=== PATIENT | male | born 1935 | race Caucasian/White ===

== ENCOUNTER 2018-05-04 11:53 | Emergency (ER) | payer OTHER ==
[2018-05-04] MEDS: HYDROcodone/APAP 5/325MG 1 TAB TABLET PO (12:51)
== END 2018-05-04 14:25 | disposition home or self-care (01) ==
LOC: ER 11:53
DX: M25.512 Pain in left shoulder (principal); G89.29 Other chronic pain; I10 Essential (primary) hypertension; E03.9 Hypothyroidism, unspecified; Z88.8 Allergy status to other drugs, medicaments and biological substances
CPT/HCPCS: 73030; 84484; 93005; 99284

== ENCOUNTER 2019-10-23 18:04 | Emergency (ER) | payer MEDICARE, OTHER ==
[~2019-10-23] VITALS: Ht 172.7 cm; Wt 60.8 kg
[~2019-10-23 18:04] MED LIST: HYDR-2761 PO
[2019-10-23 19:10] VITALS: BP 144/85
--- NOTE | 2019-10-23 19:26 | PHYS DOC ---
Past Medical History Past Medical History: Hypertension, Hypothyroid, Other Additional Past Medical Histor: POST HERPETIC NEUROPATHY-LEFT CHEST/RIBS Past Surgical History: Appendectomy, Cholecystectomy, Lumbar Laminectomy Alcohol Use: None Drug Use: None Adult General Chief Complaint Chief Complaint: OTHER COMPLAINTS HPI HPI 84-year-old male presents to the emergency department with complaints of abnormal white blood cell count. Patient states he was seen by his primary care physician with laboratory studies, white blood cell count 29,000. She has a history of hypothyroidism well and smokes tobacco. She denies any chest pain, nausea, vomiting, shortness of breath, abdominal pain, diarrhea, urinary frequency or dysuria. Patient was instructed by his primary care physician to be seen in the emergency department for abnormal labs. Review of Systems Review of Systems Constitutional: Denies fever or chills [] Respiratory: cough/chronic Cardiovascular: No additional information not addressed in HPI [] GI: Denies abdominal pain, nausea, vomiting, bloody stools or diarrhea [] : Denies dysuria or hematuria [] Musculoskeletal: Denies back pain or joint pain [] Integument: Denies rash or skin lesions [] Neurologic: Denies headache, focal weakness or sensory changes [] All other systems were reviewed and found to be within normal limits, except as documented in this note. Current Medications Current Medications Current Medications Medications (Trade) Dose Ordered Sig/Viviana Start Time Stop Time Status Last Admin Dose Admin Potassium Chloride (Klor-Con) 20 meq 1X ONCE 10/23/19 21:15 10/23/19 21:16 DC 10/23/19 21:11 20 MEQ Allergies Allergies Allergies Coded Allergies Type Severity Reaction Last Updated Verified nitroglycerin Allergy Severe Anaphylaxis 05/04/18 Yes Physical Exam Physical Exam Constitutional: Well developed, well nourished, no acute distress, non-toxic appearance. [] HENT: Normocephalic, atraumatic, bilateral external ears normal, oropharynx m oist, no oral exudates, nose normal. [] Eyes: PERRLA, EOMI, conjunctiva normal, no discharge. [] Cardiovascular:Heart rate regular rhythm, no murmur [] Lungs & Thorax: Bilateral breath sounds clear to auscultation [] Abdomen: Bowel sounds normal, soft, no tenderness, no masses, no pulsatile masses. [] Skin: Warm, dry, no erythema, no rash. [] Back: No tenderness, no CVA tenderness. [] Extremities: No tenderness, no edema. [] Neurologic: Alert and oriented X 3, no focal deficits noted. [] Psychologic: Affect normal, judgement normal, mood normal. [] Current Patient Data Vital Signs Vital Signs Date Time Temp Pulse Resp B/P (MAP) Pulse Ox O2 Delivery O2 Flow Rate FiO2 10/23/19 19:10 98.0 69 18 144/85 (104) 94 Room Air 98.0 Lab Values Laboratory Tests Test 10/23/19 19:17 10/23/19 19:24 White Blood Count 26.3 x10^3/uL (4.0-11.0) H Red Blood Count 5.76 x10^6/uL (4.30-5.70) H Hemoglobin 16.7 g/dL (13.0-17.5) Hematocrit 49.0 % (39.0-53.0) Mean Corpuscular Volume 85 fL (79-100) Mean Corpuscular Hemoglobin 29 pg (25-35) Mean Corpuscular Hemoglobin Concent 34 g/dL (31-37) Red Cell Distribution Width 14.9 % (11.5-14.5) H Platelet Count 440 x10^3/uL (140-400) H Neutrophils (%) (Auto) 77 % (31-73) H Lymphocytes (%) (Auto) 20 % (24-48) L Monocytes (%) (Auto) 3 % (0-9) Eosinophils (%) (Auto) 0 % (0-3) Basophils (%) (Auto) 0 % (0-3) Neutrophils # (Auto) 20.3 x10^3/uL (1.8-7.7) H Lymphocytes # (Auto) 5.2 x10^3/uL (1.0-4.8) H Monocytes # (Auto) 0.8 x10^3/uL (0.0-1.1) Eosinophils # (Auto) 0.0 x10^3/uL (0.0-0.7) Basophils # (Auto) 0.1 x10^3/uL (0.0-0.2) Segmented Neutrophils % 70 % (35-66) H Lymphocytes % 25 % (24-48) Monocytes % 5 % (0-10) Platelet Estimate Adequate (ADEQUATE) Sodium Level 136 mmol/L (136-145) Potassium Level 3.3 mmol/L (3.5-5.1) L Chloride Level 98 mmol/L (98-107) Carbon Dioxide Level 29 mmol/L (21-32) Anion Gap 9 (6-14) Blood Urea Nitrogen 26 mg/dL (8-26) Creatinine 1.1 mg/dL (0.7-1.3) Estimated GFR (Cockcroft-Gault) 63.9 BUN/Creatinine Ratio 24 (6-20) H Glucose Level 116 mg/dL (70-99) H Lactic Acid Level 1.4 mmol/L (0.4-2.0) Calcium Level 9.4 mg/dL (8.5-10.1) Total Bilirubin 0.6 mg/dL (0.2-1.0) Aspartate Amino Transferase (AST) 16 U/L (15-37) Alanine Aminotransferase (ALT) 20 U/L (16-63) Alkaline Phosphatase 180 U/L (46-116) H Total Protein 7.3 g/dL (6.4-8.2) Albumin 3.6 g/dL (3.4-5.0) Albumin/Globulin Ratio 1.0 (1.0-1.7) Thyroid Stimulating Hormone (TSH) 1.081 uIU/mL (0.358-3.74) Urine Collection Type Unknown Urine Color Yellow Urine Clarity Clear Urine pH 6.5 Urine Specific Goodrich 1.010 Urine Protein Negative mg/dL (NEG-TRACE) Urine Glucose (UA) Negative mg/dL (NEG) Urine Ketones (Stick) Negative mg/dL (NEG) Urine Blood Small (NEG) Urine Nitrite Negative (NEG) Urine Bilirubin Negative (NEG) Urine Urobilinogen Dipstick 0.2 mg/dL (0.2 mg/dL) Urine Leukocyte Esterase Negative (NEG) Urine RBC 6-10 /HPF (0-2) Urine WBC 0 /HPF (0-4) Urine Squamous Epithelial Cells Occ /LPF Urine Bacteria 0 /HPF (0-FEW) Laboratory Tests 10/23/19 19:17 Laboratory Tests 10/23/19 19:17 EKG EKG [] Radiology/Procedures Radiology/Procedures [] Course & Med Decision Making Course & Med Decision Making Pertinent Labs and Imaging studies reviewed. (See chart for details) []84-year-old male presents to the emergency department with complaints of a bnormal white blood cell count. Patient states he was seen by his primary care physician with laboratory studies, white blood cell count 29,000. She has a history of hypothyroidism well and smokes tobacco. She denies any chest pain, nausea, vomiting, shortness of breath, abdominal pain, diarrhea, urinary frequency or dysuria. Patient was instructed by his primary care physician to be seen in the emergency department for abnormal labs. Labs reviewed No acute infectious process identified Discussed findings with patient Plan for follow up as an outpatient with Hematology (referral provided) Discussed with DR. QUINONES - plan follow up with as outpatient Dragon Disclaimer Dragon Disclaimer This electronic medical record was generated, in whole or in part, using a voice recognition dictation system. Departure Departure Impression: Primary Impression: Leukocytosis, unspecified Disposition: HOME, SELF-CARE Condition: STABLE Referrals: NO PCP (PCP) Patient Instructions: Leukocytosis Additional Instructions: Recommend follow up with PCP 3 - 5 days Return to the ER with worsening symptoms, intractable pain, fever, altered mental status Tylenol/Motrin as needed for pain Recommend follow up with hematology as outpatient - call for appointment BENY DAVID MD Oct 23, 2019 19:26
[2019-10-23 20:35] LABS: BASO # 0.1 x10^3/uL (0.0-0.2); BASO % 0 % (0-3); EOS % 0 % (0-3); HEMOGLOBIN 16.7 g/dL (13.0-17.5); LYMPH # 5.2 x10^3/uL (1.0-4.8); LYMPH % 20 % (24-48); MEAN CORPUSCULAR HEMOGLOBIN 29 pg (25-35); MEAN CORPUSCULAR HGB CONC 34 g/dL (31-37); MEAN CORPUSCULAR VOLUME 85 fL (79-100); MONO # 0.8 x10^3/uL (0.0-1.1); MONO % 3 % (0-9); NEUT # 20.3 x10^3/uL (1.8-7.7); NEUT % 77 % (31-73); PLATELET COUNT 440 x10^3/uL (140-400); RED BLOOD COUNT 5.76 x10^6/uL (4.30-5.70); RED CELL DISTRIBUTION WIDTH 14.9 % (11.5-14.5); WHITE BLOOD COUNT 26.3 x10^3/uL (4.0-11.0)
[2019-10-23 20:36] LABS: BILIRUBIN,URINE NEGATIVE (NEG); CLARITY,URINE CLEAR; COLOR,URINE YELLOW; NITRITE,URINE NEGATIVE (NEG); PH,URINE 6.5; PROTEIN,URINE NEGATIVE (NEG-TRACE); UROBILINOGEN,URINE 0.2 mg/dL (0.2 mg/dL)
[2019-10-23 20:45] LABS: CALCIUM 9.4 mg/dL (8.5-10.1); CREATININE 1.1 mg/dL (0.7-1.3); GFR 63.9; POTASSIUM 3.3 mmol/L (3.5-5.1)
[2019-10-23 20:48] LABS: BACTERIA,URINE 0 /HPF (0-FEW); SQUAMOUS EPITHELIAL CELL,UR OCC /LPF; WBC,URINE 0 /HPF (0-4)
[2019-10-23 20:50] LABS: ALBUMIN 3.6 g/dL (3.4-5.0); TOTAL BILIRUBIN 0.6 mg/dL (0.2-1.0); TOTAL PROTEIN 7.3 g/dL (6.4-8.2)
[2019-10-23 21:01] LABS: % LYMPHS 25 % (24-48); % MONOS 5 % (0-10); % SEGS 70 % (35-66); PLT ESTIMATE ADEQUATE (ADEQUATE)
--- NOTE | 2019-10-23 21:03 | RAD ---
Study: CHEST PA LATERAL Indication: Cough. Comparison: None. Findings: The cardiomediastinal silhouette is within normal limits for size. No pneumothorax or airspace consolidation. Blunted left costophrenic angle. Status post upper lumbar vertebral body augmentation. Sigmoid thoracolumbar curvature. Vascular calcifications. Impression: 1. No confluent infiltrate to suggest an organizing pneumonia. 2. Blunted left costophrenic angle which could be related to trace pleural fluid or pleural scarring. No radiographic manifestations of overt failure. Electronically signed by: ELODIA OWENS MD (10/23/2019 9:00 PM) [facility] [place]
[2019-10-23] MEDS ORDERED: POTASSIUM CHLORIDE 20 MEQ TABLET.ER. PO ONE (21:15)
== END 2019-10-23 22:35 | disposition home or self-care (01) ==
LOC: ER 18:04
DX: D72.829 Elevated white blood cell count, unspecified (principal); E03.9 Hypothyroidism, unspecified; I10 Essential (primary) hypertension; Z88.8 Allergy status to other drugs, medicaments and biological substances
CPT/HCPCS: 36415; 71046; 80053; 81001; 83605; 84443; 85007; 85025; 99285-25

== ENCOUNTER → 2019-11-06 | Outpatient (CLI) | payer MEDICARE ==
[2019-11-06] VITALS (7 sets, daily range): BP systolic 105–149; BP diastolic 59–107
[~2019-11-06] VITALS: Ht 167.6 cm; Wt 61.2 kg
[~2019-11-06] MED LIST changes: +LIDOCAINE WITH 8.4% SOD BICARB 3 ML DISP.SYRIN. IJ ONE; +MIDAZOLAM HCL/PF 2 MG/2 ML VIAL. IV ONE; +fentaNYL PF VIAL 100 MCG/2 ML VIAL IV ONE
[2019-11-06 07:40] LABS: BASO # 0.2 x10^3/uL (0.0-0.2); BASO % 1 % (0-3); EOS # 0.2 x10^3/uL (0.0-0.7); EOS % 1 % (0-3); HEMATOCRIT 47.2 % (39.0-53.0); HEMOGLOBIN 15.9 g/dL (13.0-17.5); LYMPH # 7.9 x10^3/uL (1.0-4.8); LYMPH % 42 % (24-48); MEAN CORPUSCULAR HEMOGLOBIN 29 pg (25-35); MEAN CORPUSCULAR HGB CONC 34 g/dL (31-37); MEAN CORPUSCULAR VOLUME 85 fL (79-100); MONO # 1.2 x10^3/uL (0.0-1.1); MONO % 7 % (0-9); NEUT # 9.2 x10^3/uL (1.8-7.7); NEUT % 49 % (31-73); PLATELET COUNT 334 x10^3/uL (140-400); RED BLOOD COUNT 5.54 x10^6/uL (4.30-5.70); RED CELL DISTRIBUTION WIDTH 15.5 % (11.5-14.5); WHITE BLOOD COUNT 18.8 x10^3/uL (4.0-11.0)
[2019-11-06 07:46] LABS: PROTHROMBIN TIME PATIENT 12.9 SEC (11.7-14.0)
--- NOTE | 2019-11-06 10:16 | NUR ---
Client discharged from facility with all personal belongings accompanied by daughter. PIV site removed without difficulty. Client escorted to outpatient parking per w/c. All discharge instructions reviewed with client and daughter. Client verbalized an understanding.
--- NOTE | 2019-11-06 16:35 | RAD ---
CT-guided bone marrow biopsy. 11/06/2019 2:28 PM Indication: LEUKOCYTOSIS Discussion: The risks and benefits of the procedure, including but not limited to, bleeding and infection were discussed patient. Informed consent was obtained. The patient was brought to the CT scanner and placed in the prone position. A timeout procedure was performed. CT imaging of the pelvis demonstrated left ilium amenable to bone marrow biopsy. The right ilium is abnormal in appearance with an expansile appearance, with coarsened trabecula and osteolytic regions. Areas of sclerosis are seen. The overlying soft tissues were prepped and draped using maximum sterile barrier technique. 1% lidocaine without epinephrine was administered for local anesthesia. Under intermittent CT guidance, an OncControl needle was advanced into the bone marrow of the left iliac crest. 2 Aspirates and 1 core biopsy samples were obtained. Samples were delivered to pathology was present at the time of procedure. The needle was removed and manual pressure held to achieve hemostasis. No immediate complications were identified. The procedure was performed under conscious sedation including continuous cardiopulmonary monitoring via dedicated sedation nurse. Sedation time: 20 minutes Impression: 1. Successful CT-guided bone marrow biopsy of the left iliac crest . 2. Abnormal appearance of the right ilium, suggestive of Paget's disease PQRS Compliance Statement: One or more of the following individualized dose reduction techniques were utilized for this examination: 1. Automated exposure control 2. Adjustment of the mA and/or kV according to patient size 3. Use of iterative reconstruction technique
--- NOTE | 2019-11-23 15:52 | PATHOLOGY ---
[facility] Accession Number: [id number] . 01 Material submitted: . PART A: bone - BONE MARROW BIOPSY PART B: bone - BONE MARROW CLOT PART C: bone - BONE MARROW ASPIRATE SLIDE PART D: peripheral nerves - PERIPHERAL SMEAR PART E: bone - BONE MARROW FLOW SENDOUT . 01 Clinical history: . 84-year-old man with leukocytosis and thrombocytosis. . 02 Diagnosis: Bone marrow aspirate, biopsy, cell clot and peripheral blood: - Peripheral blood with leukocytosis (neutrophilia and lymphocytosis) and mild thrombocytosis. 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 - See comment. (CLW:wilbert; 11/20/2019) . . Special studies report received from [facility], [address] [place] [address], [address], [place], [address], on case [id number], labeled with their number [id number], dated 11/18/2019. . Referral Testing Report . . Test Performed LEF1 - Stain Only . Specimen Type Tissue - Paraffin Embedded - Bone Marrow Clot . Results Stain/Process Log: Immunohistochemistry . Stain/Process Log for IP Lab Part A: BONE MARROW ([id number]) All Pieces Used? Y Other Case #: [id number] (None) H and E First x 1 RO RTM 11/16/2019 09:34 H and E Last x 1 RO RTM 11/16/2019 09:34 LEF-1* x 1 RO RTM 11/16/2019 09:34 . Part B: BONE MARROW ([id number]) All Pieces Used? Y Other Case #: [id number] (None) H and E First x 1 RO RTM 11/16/2019 09:34 H and E Last x 1 RO RTM 11/16/2019 09:34 LEF-1* x 1 RO RTM 11/16/2019 09:34 . . Stains Reviewed: CS Date: 11/16/19 . Disclaimer [facility] is a business unit of [employer], a wholly-owned subsidiary of [employer]. Technical Component performed at [facility] at [address] [place] [address], [id number] . A complete copy of the report is on file. . Professional services performed by [id number] is a business unit of [employer], a wholly-owned subsidiary of [employer]. Technical Component performed at [facility] at [address] [place] [address], [id number]. . (CLW:aleyda 11/19/2019) [place] 11/20/2019 1336 Local . 02 Comment: Overall the bone marrow is hypercellular for the patient's age with trilineage hematopoiesis, mild (no significant) dyspoiesis and involvement by CD5 positive B-cell lymphoproliferative disorder. 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 There is approximately 40% involvement by immunohistochemical staining. Correlation with clinical history, additional laboratory data and radiographic findings is required. Cytogenetics reveals an abnormal male karyotype with no clonal abnormalities. Clinical correlation is recommended. The case is co-reviewed with Dr. Aakash Mcallister. (CLW:wilbert; 11/20/2019) . 02 Electronically signed: . Shaye Park MD, Pathologist NPI- [id number] . 01 Gross description: . A. Received in formalin labeled "Dae Daniels, BM BX," are multiple fragments of needle cores of billingsley bone measuring 1.2 x 0.8 x 0.2 cm in aggregate dimensions. The specimen is filtered and submitted entirely in cassette A1, following decalcification. . B. Received in formalin labeled "Dae Daniels, BM Asp Clot," is an aggregate of dark billingsley blood clot measuring 2.8 x 2.0 x 0.1 cm. The specimen is filtered and entirely submitted in cassette B1. (TSD; 11/06/2019) TOB/TOB 11/06/2019 1807 Local . 02 Microscopic: . CBC Data (10/23/19): WBC 26,300 /uL, RBC 5.76, hemoglobin 16.7 g/dL, hematocrit 49.0%, MCV 85 fL, MCH 29 pg, MCHC 34 g/dL, RDW 14.9%, and platelet count 440,000 /uL. White blood cell differential: segs 77%, lymphs 20%, and monos 3%. . Peripheral Blood Smear: Cytomorphological examination of the Robbins's stained peripheral blood smear confirms the provided data. Red blood cells are normocytic and are without significant anisopoikilocytosis. White blood cells are moderately increased in number. They are predominantly segmented neutrophils and are without significant dyspoiesis or significant left shift. Lymphocytes are predominantly small, round, and mature appearing with condensed chromatin and scant cytoplasm with admixed large granular lymphocytes and reactive appearing lymphocytes. On scanning, no markedly atypical lymphoid cells (prolymphocytes) are seen. Monocytes are mature. Platelets are adequate (mildly increased) in number and mainly normal in morphology with rare larger platelets noted. . Aspirate Smears: Cytomorphological examination of the Robbins's stained aspirate smears shows spicules present. The overall cellularity is approximately 70%. The myeloid to erythroid ratio is 1.5:1. Full myeloid maturation is identified and is without significant dyspoiesis. Erythroid maturation is mildly dyserythropoietic with irregular nuclear contours. In a 500 cell differential, there are less than 1% blasts (no Lin rods are seen), 32% more differentiated myeloids, 23% erythroid precursors, 45% lymphocytes and less than 1% plasma cells. Megakaryocytes are proportional in number and both normal and abnormal in morphology with variable sizes and nuclear abnormalities. There is an increase in small mature appearing lymphocytes with condensed chromatin and scant cytoplasm. No markedly atypical lymphoid cells are seen. Plasma cells are without atypia. Iron stain of the aspirate smear shows 1/4+ iron positivity with spicules present. No ringed sideroblasts are identified. . Core Biopsy and Cell Clot: The decalcified bone marrow core biopsy is adequate. The bone marrow is hypercellular with an overall cellularity of approximately 60%. The myeloid to erythroid ratio is 1-2:1. Myeloid maturation is without significant dyspoiesis. Erythroid maturation is mildly dyserythropoietic. Megakaryocytes are normal in number and both normal and abnormal in morphology. There is an increase in small mature appearing lymphocytes that are infiltrating through the interstitium and forming vague/infiltrative aggregates. No markedly atypical lymphoid cells are seen. Bony trabeculae and blood vessels are unremarkable. The cell clot has spicules present that are similar in cellularity and differential morphology as previously described. Again, there is an increase in small mature appearing lymphocytes forming vague/infiltrative lymphoid aggregates. . Properly controlled special stains are performed. . Block A1: Iron - 1/4+ positivity; Reticulin - Focal mild reticulin fibrosis. . Block B1: Iron - 1/4+ iron positivity with spicules present. . To further characterize and quantify the neoplastic B-cell population and to identify cells in a tissue architectural context, properly controlled immunohistochemical stains are performed. . Block A1: CD20 - stains approximately 40% neoplastic B-cells in the interstitium and forming vague aggregates; PAX5 - stains approximately 40% neoplastic B-cells; CD3 - highlights admixed T-cells; Cyclin D1 - no B-cell co-expression; Annexin - no B-cell co-expression; Ki-67 - low proliferative index in the vague lymphoid aggregates. . Block B1: CD20 - stains neoplastic B-cells comprising 40-50% of the marrow cellularity forming vague aggregates; PAX5 - stains 40-50% neoplastic B-cells; CD3 - highlights admixed T-cells; Cyclin D1 - no B-cell co-expression; Annexin - no B-cell co-expression; Ki-67 - low proliferative index in the vague lymphoid aggregates. . Additional immunohistochemical stains were performed (technical component only) at outside institutions and interpreted by Dr. Park. . Block A1: SOX11 - no B-cell co-expression; LEF1 - B-cell co-expression. . Block B1: SOX11 - no B-cell co-expression; LEF1 - B-cell co-expression. . . Flow Cytometry: Flow cytometric immunophenotypic analysis was performed at [facility]. The diagnosis is "consistent with CD5 positive B-cell lymphoproliferative disorder." There are 23.6% lymphocytes. Of the lymphocytes, there are 50% T-cells with a CD4/CD8 ratio of 2.06 and no aberrant T-cell antigen expression. There are 46% monoclonal B-cells characterized as CD5 mod, CD10 neg, CD11c dim/partial, CD19 mod, CD20 mod, CD23 neg, and kappa mod (kappa lambda ratio of 12.2). There are 0.1% CD34 positive cells (blasts) and precursor B-cells are absent. Please see separate flow cytometry report from [facility] ([id number]). . Cytogenetics Analysis: Cytogenetic chromosomal analysis was performed at [facility]. The karyotype is 45,X-Y [4]/46, XY [16]. The interpretation is an abnormal male karyotype. 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 The remaining 16 cells show a normal male karyotype. Loss of the Y chromosome is an age-related change in older males and is not considered clinically significant. Please see separate cytogenetics report from [facility] ([id number]). (CLW:wilbert; 11/20/2019) . 02 Pathologist provided ICD-10: D72.829, D47.3 . 02 CPT . 186190, 031219, 782476, 584352, 518307, 267294, 990841, 063144, 142383, Y94354, [id number], O07331 Specimen Comment: A courtesy copy of this report has been sent to [phone] Specimen Comment: [phone], Specimen Comment: Report sent to , and Performed at: [address] [facility], [place], [place] [id number] MD Kee Stover MD Phone: [phone] Performed at: [address] [id number] MD Keke Sotomayor MD Phone: [phone]
== END | disposition home or self-care (01) ==
LOC: INTRAD 06:44
PROVIDERS: ATTEND Internal Medicine Hematology & Oncology
DX: D47.3 Essential (hemorrhagic) thrombocythemia (principal); D72.828 Other elevated white blood cell count; Z88.8 Allergy status to other drugs, medicaments and biological substances
CPT/HCPCS: 36415; 38222; 77012; 85025; 85610; 88184; 88185; 88237; 88305; 88311; 88313; 88341; 88342; 88360; J2250; J3010; 99152